=== PATIENT | male | born 1950 | race Caucasian/White ===

== ENCOUNTER 2019-05-27 16:33 | Outpatient (REF) | payer OTHER, SELFPAY ==
[2019-05-27 19:35] LABS: Calculated LDL 100 mg/dL (<100); Cholesterol 174 mg/dL (<200); HDL Cholesterol 35 mg/dL (40-60); Triglyceride 197 mg/dL (<150); Vitamin B12 570 pg/mL (193-986)
== END 2019-05-27 16:53 ==
LOC: NCHCN 16:33
PROVIDERS: PCP Family Medicine; Visit Provider Family Medicine
DX: R20.2 Paresthesia of skin (principal); Z00.00 Encounter for general adult medical examination without abnormal findings; Z13.220 Encounter for screening for lipoid disorders
CPT/HCPCS: 80061; 82607

== ENCOUNTER 2020-03-06 15:10 | Outpatient (REF) | payer MEDICARE, BC, SELFPAY ==
[2020-03-09 00:35] LABS: COVID-19 RT-PCR UVMMC Result Negative (Negative)
== END 2020-03-06 15:30 ==
LOC: NCHCN 15:10
PROVIDERS: PCP Family Medicine; Visit Provider Nurse Practitioner Family
DX: Z20.828 Contact with and (suspected) exposure to other viral communicable diseases (principal)
CPT/HCPCS: U0003

== ENCOUNTER 2021-08-30 06:31 | Day surgery (SDC) | payer MEDICARE, BC, SELFPAY ==
[2021-08-30] MEDS: Tropicam./Phenyleph. (1/2.5%) 5 ML BTL OD ×3 (06:51→07:07)
[2021-08-30 06:54] VITALS: BP 175/57; PULSE 43; RESP 16; TEMP 36.6; O2SAT 97
--- NOTE | 2021-08-30 07:09 | W.ANESPRE ---
General Info Date of Service Date Performed: 08/30/21 Height: 5 ft 6 in Weight: 74.6 kg Body Mass Index (BMI): 26.5 Surgical Procedure: Operation Date: 08/30/21 07:40 Proposed Procedure Side Surgeon p Cataract Extraction with IOL Implant Right Aron Reynolds MD Meds Allergies and Home Medications Allergies Allergy/AdvReac Type Severity Reaction Status Date / Time Poison Mariah Allergy Uncoded 08/30/21 06:47 Home Medication Medication Instructions Recorded aspirin 325 mg tablet 325 mg PO DAILY 08/26/21 flecainide 50 mg tablet 50 mg PO BID 08/26/21 levothyroxine 125 mcg tablet 125 mcg PO DAILY 08/26/21 metoprolol tartrate 25 mg tablet 25 mg PO BID 08/26/21 prednisone 5 mg tablet 5 mg PO DAILY 08/26/21 sildenafil 50 mg tablet 50 mg PO PRN PRN 08/26/21 Current Visit Medications: Current Medications Generic Name Dose Route Start Last Admin Trade Name Freq PRN Reason Stop Dose Admin Acetaminophen 1,000 mg 08/30/21 06:00 Acetaminophen 500 Mg Tab PO Q4H PRN PRN Miscellaneous Medication 0 ml 08/30/21 06:00 Prednisolone 1%, Moxifloxacin 0.5%, Nepafenac 0.1% 5ml Btl OD DIRECTED [facility] Miscellaneous Medication 0 ml 08/30/21 06:00 08/30/21 07:07 Tropicam./Phenyleph. (1/2.5%) 5 Ml Btl OD 1 drp DIRECTED [facility] Administration Tetracaine HCl 0 ml 08/30/21 06:00 Tetracaine 0.5% 4 Ml Btl OD DIRECTED [facility] Medical History Medical History (Updated 08/30/21 @ 06:46 by Kim Mckeon) Hypothyroidism Melanoma PAF (paroxysmal atrial fibrillation) Right arm fracture Tobacco Smoking/Tobacco Use Status: Former Tobacco Use Alcohol Alcohol Intake: current Alcohol intake frequency: 0-2 drinks per day Alcohol type: beer Substance Use Substance use type: does not use Vital Signs and Lab Results Vital Signs Most Recent Vital Signs in EMR: Most Recent Vital Signs Temp Pulse Resp BP Pulse Ox 36.6 C 43 L 16 175/57 H 97 08/30/21 06:54 08/30/21 06:54 08/30/21 06:54 08/30/21 06:54 08/30/21 06:54 Lab Results Blood Type / Crossmatch: No Data to Display Complete Blood Count: No Data to Display Complete Metabolic Panel: No Data to Display Liver Function Panel: No Data to Display Coagulation Panel: No Data to Display Cardiac Panel: No Data to Display Arterial Blood Gas: No Data to Display Venous Blood Gas: No Data to Display Pancreas Panel: No Data to Display Thyroid Panel: No Data to Display Infectious Disease: No Data to Display Blood Cultures: No Data to Display Toxicology Panel: No Data to Display Anesthesia Assessment and Plan Anesthesia History Personal History: No History of Anesthesia Complications Family History: No Family History of Anesthesia Complications Exercise Tolerance Exercise Tolerance: Metabolic Equivalents>4 Pertinent Negatives Pertinent Negatives: No Symptoms of GERD, No Major Cardiovascular Symptoms or Complaints (Atrial fibrillation ), No Major Pulmonary Symptoms or Complaints and No History of CVA/TIA Cardiac & Pulmonary Exam Cardiac Exam: Normal S1/S2 Heart Sounds Pulmonary Exam: Clear Bilateral Breath Sounds Implantable Cardiac Device Does patient have a Pacemaker or an ICD?: No Airway Exam Known Difficult Airway: No Mallampati Class: 3 Mouth Opening: Normal (> 3cm) Thyromental Distance: Greater than 3 cm Neck Range of Motion: Full ROM Neck Circumference: Normal Teeth Condition: Normal Dentition ASA Classification ASA Score: ASA 2 Emergency Case?: No NPO Status NPO Status: NPO Clears >2 hours, Solids >8 hours Anesthesia Plan Resuscitation Status: Full Code Anesthesia Technique: MAC Anesthesia Airway Planned: Natural Airway Monitors Used: Standard Monitors
[2021-08-30 07:11] VITALS: BMI 26.5
[2021-08-30] MEDS: Tetracaine 0.5% 4 ML BTL OD (07:27)
[2021-08-30] MEDS: Lidocaine 2% Jelly 6 ML SYR (07:27)
[2021-08-30] MEDS: Balanced Salt Soln.-PLUS 500 ML BAG (07:37)
[2021-08-30] MEDS: Povidone-Iodine Ophth 30 ML BTL (07:38)
[2021-08-30] MEDS: Duovisc Viscoelastic System EACH 1 EACH (07:38)
[2021-08-30 07:52] VITALS: BP 167/65; PULSE 45; RESP 16; TEMP 36.6; O2SAT 98
--- NOTE | 2021-08-30 07:54 | PDOC.DSDIS_ITS ---
Discharge Plan Disposition Patient Disposition: HOME Condition: Good Discharge Details Attending Provider: Aron Reynolds Primary Care Provider: Michael Vogel [facility] and New Rx's Prescriptions: No Action sildenafil 50 mg Tablet 50 mg PO PRN PRN aspirin 325 mg Tablet 325 mg PO DAILY prednisone 5 mg Tablet 5 mg PO DAILY levothyroxine 125 mcg Tablet 125 mcg PO DAILY flecainide 50 mg Tablet 50 mg PO BID metoprolol tartrate 25 mg Tablet 25 mg PO BID Discharge Instructions Stand Alone Forms: Post-op Topical Cataract, Kristine Samaniego ([facility]U) Discharge Orders Discharge Orders: Discharge Order (Routine); Ordered 08/30/21 Ordered By: Aron Reynolds DS: Diagnosis Discharge Diagnosis (1) Nuclear sclerotic cataract of right eye: Status: Resolved (2) Posterior subcapsular age-related cataract, right eye: Status: Resolved
--- NOTE | 2021-08-30 07:54 | W.ANESPOSTOP ---
Postoperative Evaluation Date, Time and Location Date Performed: 08/30/21 Time Performed: 07:55 Patient Location: Day Surgery Unit Vital Signs Most Recent Imported Vital Signs: Most Recent Vital Signs Temp Pulse Resp BP Pulse Ox 36.6 C 43 L 16 175/57 H 97 08/30/21 06:54 08/30/21 06:54 08/30/21 06:54 08/30/21 06:54 08/30/21 06:54 Most Recent Manually Entered Vital Signs: Adult Blood Pressure: 167/85 Heart Rate: 45 Respirations: 16 Oxygen Saturation (%): 98 Temperature (C): 36.6 C Pain Score (0-10 Scale): 0 Pain Score Most Recent Pain Score: Most Recent Pain Score Pain Level 0 08/30/21 06:54 Assessment Mental Status: Awake (Alert & Oriented to Patient Baseline) Airway and Respiratory Function: Patent airway with normal (patient baseline) respiratory exam Cardiovascular Function: Hemodynamically Stable Hydration Status: Adequately Hydrated Nausea & Vomiting: No Nausea or Vomiting Pain: Pt. Denies Any Pain Peripheral Nerve Block: Patient did not receive a nerve block
--- NOTE | 2021-08-30 07:55 | W.PM.OP ---
Date of service: 08/30/21 Time of Service: 07:56 Operative Note Operative Note DATE OF PROCEDURE: 08/30/21 PRE-OP DIAGNOSIS: Nuclear/posterior subcapsular cataract, right eye POST-OP DIAGNOSIS: same PROCEDURE: Cataract extraction using phacoemulsification with intraocular lens implant, right eye SURGEON: Aron Reynolds ANESTHESIA TYPE: Local By Surgeon and MAC Refer to Anesthesia Record ESTIMATED BLOOD LOSS: 0 PATHOLOGY: none sent COMPLICATIONS: None Patient was transported to: same day Patient's condition: stable Implants: Armen & Armen/NALLELY Tecnis [id number] Indications: Progressive visual loss due to cataract, right eye Procedure Description: CATARACT SURGERY OPERATIVE REPORT PREOPERATIVE DIAGNOSIS: 1. Nuclear/posterior subcapsular cataract, right eye POSTOPERATIVE DIAGNOSIS: Same OPERATION: 1. Cataract extraction using phacoemulsification with posterior chamber intraocular lens implant, right eye. IOL: IOL [employer] Worker/Model: Armen & Armen / NALLELY Tecnis [id number] IOL Power: + 15.0 diopters IOL Serial Number: [id number] Optic Diameter: 6.0mm Haptic/Overall Diameter: 13.0mm PHACO INFO: David CABIRI - [employer] Vision System with OZil and Active Fluidics Cumulative Dispersed Energy (CDE): 11.77 seconds SURGEON: Aron Reynolds MD, MARCELLUS ANESTHESIA: Monitored Anesthesia Care (MAC), with local sub-tenon's anesthetic infiltration COMPLICATIONS: None SPECIMENS: None INDICATIONS FOR PROCEDURE: The patient is a 71-year-old gentleman with history of diminished visual acuity in his right eye secondary to the development of nuclear and posterior subcapsular cataract. The option of cataract surgery was offered to the patient and he felt he was symptomatic enough that he wished to proceed. PROCEDURE: The correct surgical eye was identified and marked as the right eye and the pupil was dilated in the preoperative area using mydriatics and cycloplegics. The dilated pupil size was 7.0 mm. He elected to proceed without oral sedation. The patient was brought to the operating room where cardiopulmonary monitoring was instituted and surgical time-out was performed, confirming the correct operative eye and IOL power. Topical anesthesia was administered and ophthalmic povidone-iodine 5% was instilled into the conjunctival fornices. Lidocaine gel was applied to the cornea and the sohail-ocular area was prepped with Betadine 10% solution and draped in the usual sterile fashion for intraocular surgery, including an aperture drape. A Tegaderm transparent film dressing was cut in half and used to cover the lashes and lid margins. Care was taken to sequester the lashes and lid margins under the Tegaderm dressing. A lid speculum was placed between the lids of the operative eye and the David [employer] Revalia operating microscope was maneuvered into position. Elana scissors were then used to make a conjunctival buttonhole approximately 6mm posterior to the limbus in the inferonasal quadrant. Blunt dissection was carried out to expose bare sclera, and a blunt-tipped sub-tenon?s anesthesia cannula was introduced and passed posteriorly along the globe where non-preserved plain lidocaine was injected into posterior sub-Tenon?s space. A sideport knife was used to make a paracentesis port inferotemporally. Intraocular phenylephrine/lidocaine was injected into the anterior chamber. The anterior chamber was filled with viscoelastic. A 2.4mm keratome knife was used to construct a 2-plane near-clear corneal tunnel extending 2.0mm into clear cornea superiortemporally. A flap was raised on the anterior capsule and capsulorhexis forceps were used to complete a continuous curvilinear capsulorhexis of 5.0 mm. Balanced salt solution was then used to perform cortical cleaving hydrodissection and nuclear hydrodelineation until the lens could be freely rotated within the capsular bag. The lens nucleus was then disassembled and removed within the capsular bag and iris plane using phacoemulsification. Residual cortical material was removed using the I/A handpiece. The posterior capsule was carefully polished to remove as much residual lens epithelial cells as safely possible. The capsular bag was then inflated and the anterior chamber deepened with viscoelastic. The lens implant described above was inserted into the capsular bag using the NALLELY [place] Injector. A Kuglen hook was used to dial the IOL into position. Residual viscoelastic was then removed first from posterior to the IOL, then from the anterior chamber using the I/A handpiece. The lens implant was noted to center nicely within the capsular bag. The incisions were stromally hydrated, and the anterior chamber was reformed using BSS. Then 0.5cc of moxifloxacin 1.0mg/ml were injected into the capsular bag and anterior chamber. The incisions were checked with a Weck spear and found to be secure. Several drops of ophthalmic povidone-iodine 5% were then applied to the eye followed by two drops of Imprimis combination prednisolone/moxifloxacin/nepafenac solution. The drapes were removed and a clear plastic protective eye shield was placed over the eye. The patient was then returned to Same Day Surgery in stable condition.
[2021-08-30 07:56] VITALS: BP 167/85; PULSE 45; RESP 16; TEMPC 36.6; O2SAT 98
== END 2021-08-30 08:08 | disposition home or self-care (01) ==
PROVIDERS: PCP Family Medicine; Visit Provider Ophthalmology
PROC: (CPT 66984; principal; 2021-08-30 07:30)
DX: H25.041 Posterior subcapsular polar age-related cataract, right eye (principal); I48.0 Paroxysmal atrial fibrillation; E03.9 Hypothyroidism, unspecified; Z87.891 Personal history of nicotine dependence
CPT/HCPCS: 66984; V2632

== ENCOUNTER 2021-09-13 12:07 | Day surgery (SDC) | payer MEDICARE, BC, SELFPAY ==
[2021-09-13 10:54] LABS: Source Nasal/Nares
[2021-09-13 11:48] LABS: COVID-19 PCR Negative (Negative)
[2021-09-13 12:40] VITALS: BP 125/54; PULSE 45; RESP 13; TEMP 36.5; O2SAT 95
--- NOTE | 2021-09-13 13:48 | NUR.NOTE ---
Nursing Note: 1240 Procedure canceled per anesthesia. Patient consumed chocolate and nuts prior to procedure.
== END 2021-09-13 12:08 | disposition home or self-care (01) ==
LOC: SUR 12:08
PROVIDERS: PCP Family Medicine; Visit Provider Ophthalmology
DX: H25.9 Unspecified age-related cataract (principal); Z53.09 Procedure and treatment not carried out because of other contraindication; Z20.822 Contact with and (suspected) exposure to COVID-19
CPT/HCPCS: 87635

== ENCOUNTER 2021-09-24 08:53 | Day surgery (SDC) | payer MEDICARE, BC, SELFPAY ==
[2021-09-24 09:00] VITALS: BP 141/64; PULSE 46; RESP 16; TEMP 36.5; O2SAT 95
[2021-09-24] MEDS: Tropicam./Phenyleph. (1/2.5%) 5 ML BTL OS ×3 (09:14→09:19)
--- NOTE | 2021-09-24 10:11 | W.ANESPRE ---
General Info Date of Service Date Performed: 09/24/21 Height: 5 ft 6 in Weight: 74.7 kg Body Mass Index (BMI): 26.6 Surgical Procedure: Operation Date: 09/24/21 11:40 Proposed Procedure Side Surgeon p Cataract Extraction with IOL Implant Left Aron Reynolds MD Meds Allergies and Home Medications Allergies Allergy/AdvReac Type Severity Reaction Status Date / Time Poison Mariah Allergy Uncoded 09/24/21 08:55 Home Medication Medication Instructions Recorded aspirin 325 mg tablet 325 mg PO DAILY 08/26/21 flecainide 50 mg tablet 50 mg PO BID 08/26/21 levothyroxine 125 mcg tablet 125 mcg PO DAILY 08/26/21 metoprolol tartrate 25 mg tablet 25 mg PO BID 08/26/21 prednisone 5 mg tablet 5 mg PO DAILY 08/26/21 sildenafil 50 mg tablet 50 mg PO PRN PRN 08/26/21 Current Visit Medications: Current Medications Generic Name Dose Route Start Last Admin Trade Name Freq PRN Reason Stop Dose Admin Acetaminophen 1,000 mg 09/24/21 06:00 Acetaminophen 500 Mg Tab PO Q4H PRN PRN Miscellaneous Medication 0 ml 09/24/21 06:00 Prednisolone 1%, Moxifloxacin 0.5%, Nepafenac 0.1% 5ml Btl OS DIRECTED [facility] Miscellaneous Medication 0 ml 09/24/21 06:00 09/24/21 09:19 Tropicam./Phenyleph. (1/2.5%) 5 Ml Btl OS 1 drp DIRECTED [facility] Administration Tetracaine HCl 0 ml 09/24/21 06:00 Tetracaine 0.5% 4 Ml Btl OS DIRECTED [facility] PFSH Active Problems Active Problems: Problem Status Onset Code Nuclear sclerotic cataract of right eye H25.11 Posterior subcapsular age-related cataract, right eye H25.041 Medical History Medical History Hypothyroidism Melanoma PAF (paroxysmal atrial fibrillation) Right arm fracture Surgical History Surgical History (Updated 09/24/21 @ 09:07 by Sadia Quiroga) S/P ORIF (open reduction internal fixation) fracture Tobacco Smoking/Tobacco Use Status: Former Tobacco Use Alcohol Alcohol Intake: current Alcohol intake frequency: 0-2 drinks per day Alcohol type: beer Substance Use Substance use type: does not use Vital Signs and Lab Results Vital Signs Most Recent Vital Signs in EMR: Most Recent Vital Signs Temp Pulse Resp BP Pulse Ox 36.5 C 46 L 16 141/64 H 95 09/24/21 09:00 09/24/21 09:00 09/24/21 09:00 09/24/21 09:00 09/24/21 09:00 Lab Results Blood Type / Crossmatch: No Data to Display Complete Blood Count: No Data to Display Complete Metabolic Panel: No Data to Display Liver Function Panel: No Data to Display Coagulation Panel: No Data to Display Cardiac Panel: No Data to Display Arterial Blood Gas: No Data to Display Venous Blood Gas: No Data to Display Pancreas Panel: No Data to Display Thyroid Panel: No Data to Display Infectious Disease: Coronavirus (COVID-19)(PCR) Negative (Negative) 09/13/21 10:51 Coronavirus 2019 Source Nasal/Nares 09/13/21 10:51 Blood Cultures: No Data to Display Toxicology Panel: No Data to Display Anesthesia Assessment and Plan Anesthesia History Personal History: No History of Anesthesia Complications Family History: No Family History of Anesthesia Complications Exercise Tolerance Exercise Tolerance: Metabolic Equivalents>4 Pertinent Negatives Pertinent Negatives: No Major Pulmonary Symptoms or Complaints Cardiac & Pulmonary Exam Cardiac Exam: Normal S1/S2 Heart Sounds Pulmonary Exam: Clear Bilateral Breath Sounds Implantable Cardiac Device Does patient have a Pacemaker or an ICD?: No Airway Exam Known Difficult Airway: No Mallampati Class: 3 Mouth Opening: Normal (> 3cm) Thyromental Distance: Greater than 3 cm Neck Range of Motion: Full ROM Neck Circumference: Normal Teeth Condition: Normal Dentition ASA Classification ASA Score: ASA 3 Emergency Case?: No NPO Status NPO Status: NPO Clears >2 hours, Solids >8 hours Anesthesia Plan Resuscitation Status: Full Code Anesthesia Technique: MAC Anesthesia Airway Planned: Natural Airway Monitors Used: Standard Monitors
[2021-09-24 10:35] VITALS: BMI 26.6
[2021-09-24] MEDS: Tetracaine 0.5% 4 ML BTL OS (10:44)
[2021-09-24] MEDS: Lidocaine 2% Jelly 6 ML SYR (10:44)
[2021-09-24] MEDS: Balanced Salt Soln.-PLUS 500 ML BAG (10:52)
[2021-09-24] MEDS: Duovisc Viscoelastic System EACH 1 EACH (10:53)
[2021-09-24] MEDS: Povidone-Iodine Ophth 30 ML BTL (10:55)
[2021-09-24 11:15] VITALS: BP 156/52; PULSE 45; RESP 16; TEMP 36.1; O2SAT 99
--- NOTE | 2021-09-24 11:18 | ROE_ITS ---
Date of service: 09/24/21 Time of Service: 11:19 Operative Note Operative Note DATE OF PROCEDURE: 09/24/21 PRE-OP DIAGNOSIS: Nuclear cataract, left eye POST-OP DIAGNOSIS: same PROCEDURE: Cataract extraction using phacoemulsification with intraocular lens implant, left eye SURGEON: Aron Reynolds ANESTHESIA TYPE: Local By Surgeon and MAC Refer to Anesthesia Record PATHOLOGY: none sent COMPLICATIONS: None Patient was transported to: same day Patient's condition: stable Implants: Armen and Armen / [employer] Tecnis [id number] Indications: Progressive decreased vision due to cataract, left eye Procedure Description: CATARACT SURGERY OPERATIVE REPORT PREOPERATIVE DIAGNOSIS: 1. Nuclear cataract, left eye POSTOPERATIVE DIAGNOSIS: Same OPERATION: 1. Cataract extraction using phacoemulsification with posterior chamber intraocular lens implant, left eye. IOL: IOL Drivability Technician/Model: Armen & Armen / NALLELY Tecnis [id number] IOL Power: + 15.5 diopters IOL Serial Number: [id number] Optic Diameter: 6.0 mm Haptic/Overall Diameter: 13.0 mm PHACO INFO: David [employer]ion Vision System with OZil and Active Fluidics Cumulative Dispersed Energy (CDE): 6.01 seconds SURGEON: Aron Reynolds MD, MARCELLUS ANESTHESIA: Monitored [facility] (MAC), with local sub-tenon's anesthetic infiltration COMPLICATIONS: None SPECIMENS: None INDICATIONS FOR PROCEDURE: The patient is a 71-year-old gentleman with history of diminished visual acuity in both eyes secondary to the development of bilateral cataracts. He has already undergone cataract surgery in the right eye and is doing well postoperatively. He now presents for cataract surgery in the left eye. PROCEDURE: The correct surgical eye was identified and marked as the left eye and the pupil was dilated in the preoperative area using mydriatics and cycloplegics. The dilated pupil size was 7.0 mm. The patient elected to proceed without oral sedation. The patient was brought to the operating room where cardiopulmonary monitoring was instituted and surgical time-out was performed, confirming the correct operative eye and IOL power. Topical anesthesia was administered and ophthalmic povidone-iodine 5% was instilled into the conjunctival fornices. Lidocaine gel was applied to the cornea and the sohail-ocular area was prepped with Betadine 10% solution and draped in the usual sterile fashion for intraocular surgery, including an aperture drape. A Tegaderm transparent film dressing was cut in half and used to cover the lashes and lid margins. Care was taken to sequester the lashes and lid margins under the Tegaderm dressing. A lid speculum was placed between the lids of the operative eye and the David [employer] operating microscope was maneuvered into position. Elana scissors were then used to make a conjunctival buttonhole approximately 6mm posterior to the limbus in the inferonasal quadrant. Blunt dissection was carried out to expose bare sclera, and a blunt-tipped sub-tenon?s anesthesia cannula was introduced and passed posteriorly along the globe where non- preserved plain lidocaine was injected into posterior sub-Tenon?s space. A sideport knife was used to make a paracentesis port superiorly/super iortemporally. Intraocular phenylephrine/lidocaine was injected int the anterior chamber.. The anterior chamber was filled with viscoelastic. A keratome knife was used to construct a 2-plane near-clear corneal tunnel extending 2.0mm into clear cornea temporally. A flap was raised on the anterior capsule and capsulorhexis forceps were used to complete a continuous curvilinear capsulorhexis of 5.0 mm. Balanced salt solution was then used to perform cortical cleaving hydrodissection and nuclear hydrodelineation until the lens could be freely rotated within the capsular bag. The lens nucleus was then disassembled and removed within the capsular bag and iris plane using phacoemulsification. Residual cortical material was removed using the 45-degree angled silicone I/A tip with 0.3mm port. The posterior capsule was carefully polished to remove as much residual lens epithelial cells as safely possible. The capsular bag was then inflated and the anterior chamber deepened with viscoelastic. The lens implant described above was inserted into the capsular bag using the NALLELY [place] Injector. A Kuglen hook was used to dial the IOL into position. Residual viscoelastic was then removed first from posterior to the IOL, then from the anterior chamber using the I/A handpiece. The lens implant was noted to center nicely within the capsular bag. The incisions were stromally hydrated, and the anterior chamber was reformed using BSS. Then 0.5cc of moxifloxacin 1.0mg/ml were injected into the capsular bag and anterior chamber. The incisions were checked with a Weck spear and found to be secure. Several drops of ophthalmic povidone-iodine 5% were then applied to the eye followed by two drops of Imprimis combination prednisolone/moxifloxacin/nepafenac solution. The drapes were removed and a clear plastic protective eye shield was placed over the eye. The patient was then returned to Same Day Surgery in stable condition.
--- NOTE | 2021-09-24 11:18 | W.PM.DSUDISC ---
Discharge Plan Disposition Patient Disposition: HOME Condition: Good Discharge Details Attending Provider: Aron Reynolds Primary Care Provider: Michael Vogel [facility] and New Rx's Prescriptions: No Action sildenafil 50 mg Tablet 50 mg PO PRN PRN aspirin 325 mg Tablet 325 mg PO DAILY prednisone 5 mg Tablet 5 mg PO DAILY levothyroxine 125 mcg Tablet 125 mcg PO DAILY flecainide 50 mg Tablet 50 mg PO BID metoprolol tartrate 25 mg Tablet 25 mg PO BID Discharge Instructions Stand Alone Forms: Post-op Topical Cataract, Kristine Samaniego ([facility]U) Discharge Orders Discharge Orders: Discharge Order (Routine); Ordered 09/24/21 Ordered By: Aron Reynolds DS: Diagnosis Discharge Diagnosis (1) Nuclear sclerotic cataract of left eye: Status: Resolved
--- NOTE | 2021-09-24 16:09 | W.ANESPOSTOP ---
Postoperative Evaluation Date, Time and Location Date Performed: 09/24/21 Time Performed: 11:15 Patient Location: Day Surgery Unit Vital Signs Most Recent Imported Vital Signs: Most Recent Vital Signs Temp Pulse Resp BP Pulse Ox 36.1 C L 45 L 16 156/52 H 99 09/24/21 11:15 09/24/21 11:15 09/24/21 11:15 09/24/21 11:15 09/24/21 11:15 Pain Score Most Recent Pain Score: Most Recent Pain Score Pain Level 0 09/24/21 11:15 Assessment Mental Status: Awake (Alert & Oriented to Patient Baseline) Airway and Respiratory Function: Patent airway with normal (patient baseline) respiratory exam Cardiovascular Function: Hemodynamically Stable Hydration Status: Adequately Hydrated Nausea & Vomiting: No Nausea or Vomiting Pain: Pt. Denies Any Pain Peripheral Nerve Block: Patient did not receive a nerve block
== END 2021-09-24 11:33 | disposition home or self-care (01) ==
LOC: SUR 08:53
PROVIDERS: PCP Family Medicine; Visit Provider Ophthalmology
PROC: (CPT 66984; principal; 2021-09-24 11:30)
DX: H25.12 Age-related nuclear cataract, left eye (principal); I48.0 Paroxysmal atrial fibrillation; E03.9 Hypothyroidism, unspecified
CPT/HCPCS: 66984; V2632

== ENCOUNTER 2022-01-14 15:27 | Outpatient (REF) | payer MEDICARE, BC, SELFPAY ==
[2022-01-14 17:03] LABS: Anion Gap 6.2 mmol/L (3-11); BUN 20 mg/dL (7-18); CO2 27.8 mmol/L (21.0-32.0); CREATININE 1.1 mg/dL (0.70-1.30); Calcium 8.9 mg/dL (8.5-10.1); Chloride 106 mmol/L (98-107); Estimated GFR 72.67 (mL/min/1.73m2); Glucose 89 mg/dL (74-106); Magnesium 1.9 mg/dL (1.8-2.4); Potassium 4.5 mmol/L (3.5-5.1); Sodium 140 mmol/L (136-145); TSH (W/Ref FT4) 0.95 uIU/mL (0.36-3.74)
== END 2022-01-14 15:28 | disposition home or self-care (01) ==
LOC: NCHCN 15:27
PROVIDERS: PCP Family Medicine; Visit Provider Family Medicine
DX: I10 Essential (primary) hypertension (principal); E03.2 Hypothyroidism due to medicaments and other exogenous substances
CPT/HCPCS: 80048; 83735; 84443

== ENCOUNTER 2023-09-08 16:10 | Outpatient (REF) | payer MEDICARE, BC, SELFPAY ==
[2023-09-08 20:06] LABS: Anion Gap 8.2 mmol/L (3-11); BUN 26 mg/dL (7-18); CO2 30.8 mmol/L (21.0-32.0); CREATININE 1.4 mg/dL (0.70-1.30); Calcium 9.1 mg/dL (8.5-10.1); Calculated LDL 107 mg/dL (<100); Chloride 103 mmol/L (98-107); Cholesterol 181 mg/dL (<200); Estimated GFR 53.74 (mL/min/1.73m2); Glucose 100 mg/dL (74-106); HDL Cholesterol 42 mg/dL (40-60); Magnesium 1.9 mg/dL (1.8-2.4); Sodium 142 mmol/L (136-145); TSH (W/Ref FT4) 2.08 uIU/mL (0.36-3.74); Triglyceride 160 mg/dL (<150)
== END 2023-09-08 16:11 | disposition home or self-care (01) ==
LOC: NCHCN 16:10
PROVIDERS: PCP Family Medicine; Visit Provider Student in an Organized Health Care Education/Training Program
DX: I10 Essential (primary) hypertension (principal); E03.9 Hypothyroidism, unspecified; R79.89 Other specified abnormal findings of blood chemistry
CPT/HCPCS: 80048; 80061; 83735; 84443

== ENCOUNTER 2024-08-31 16:01 | Emergency (ER) | payer MEDICARE, BC, SELFPAY ==
[2024-08-31] VITALS (22 sets, daily range): BP systolic 168–199; BP diastolic 50–94; PULSE 47–66; RESP 9–26; TEMP 36.8; O2SAT 96–100
--- NOTE | 2024-08-31 16:00 | DI.CT_ITS ---
Exam(s) CT HEAD CERVICAL SPINE WO EXAM: CT HEAD CERVICAL SPINE WO CLINICAL HISTORY: fall off roof, +LOC. TECHNIQUE: Imaging Protocol: Axial computed tomography images with coronal and sagittal reformatted images were created and reviewed COMPARISON: No exams were available for comparison FINDINGS: BRAIN: There are no skull fractures nor fluid in the visualized paranasal sinuses. There is an area of acute intraparenchymal hemorrhage in the upper medial right frontal lobe which measures 1.2 x 0.6 x 0.9 cm and exhibits some mild surrounding edema But no shift of midline structures. There is also some extra-axial blood along the right tentorium cerebella lie adjacent right temporal lobe. There is no blood within the nondilated ventricular system nor within the basal cisterns. CERVICAL SPINE: There is no evidence of fracture nor listhesis. No significant prevertebral soft tissue swelling. There is chronic disc space narrowing at C3-4 level and Luschka joint osteophytes bilaterally at this level. Other disc spaces are relatively well preserved. There is some mild degenerative changes in the facet joints. No facet joint malalignment. No significant osseous lesions evident. IMPRESSION: There is an area of acute intra-axial hemorrhage in the high paramedian right frontal lobe measuring approximately 12 x 9 x 6 mmexhibiting mild surrounding white matter edema but no shift. There is also extra-axial blood on the superior aspect of the right tentorium cerebella I as well as mild hemorrhagic contusion in the overlying posterior right temporal lobe. No evidence of cervical spine fracture, malalignment, nor acute compromise of the cervical spinal canal. Report called by myself to ER physician 08/31/2024 at 5:01 p.m. RADIATION DOSE DELIVERED: 1,387.63mGy.cm Total DLP DATA REPOSITORY: All CT scans at this facility are submitted to the National Radiology Data Registry (NRDR) Dose Index Registry (DIR) with the [employer] (ACR). RADIATION OPTIMIZATION: All CT scans at this facility use at least one of these dose optimization techniques: automated exposure control; mA and/or kV adjustment per patient size (includes targeted exams where dose is matched to clinical indication); or iterative reconstruction.
--- NOTE | 2024-08-31 16:00 | DI.CT_ITS ---
Exam(s) CT THORACIC LUMBAR SPINE WO EXAM: CT THORACIC LUMBAR SPINE WO CLINICAL HISTORY: Fall off roof, R. flank abrasion. TECHNIQUE: Imaging Protocol: Axial computed tomography images with coronal and sagittal reformatted images were created and reviewed. CONTRAST MATERIAL: Intravenous: None COMPARISON: No exams were available for comparison FINDINGS: THORACIC SPINAL COLUMN: There are no thoracic vertebral fractures nor listhesis nor facet joint malalignment in thoracic spine. There are nondisplaced fractures of the right 11th and 12th ribs. LUMBOSACRAL SPINAL COLUMN: There are no compression fractures nor listhesis nor facet malalignment. No pars defects. However, there are acute displaced fractures of the right 1st through 5th transverse process is, all displaced. In addition to all of the right transverse process is being fractured there is also some asymmetric enlargement-hematoma in the ipsilateral right psoas muscle. Calculi noted in both kidneys. There is also some scarring in the upper lobe of the right kidney and some Margy renal streaking around the upper lobe of the right kidney which may be post operative or related to the trauma. There is no large Margy renal hematoma. IMPRESSION: There are displaced fractures of all 5 of the right transverse process is of the lumbar spine. There is adjacent right psoas hematoma. There are no compression fractures of the thoracic and lumbar vertebrae. There are nondisplaced fractures of the posterior lateral aspects of the right 11th and 12th ribs. Report called by myself to ER physician 08/31/2024 5:30 p.m. RADIATION DOSE DELIVERED: 2,350.49mGy.cm Total DLP DATA REPOSITORY: All CT scans at this facility are submitted to the National Radiology Data Registry (NRDR) Dose Index Registry (DIR) with the [employer] (ACR). RADIATION OPTIMIZATION: All CT scans at this facility use at least one of these dose optimization techniques: automated exposure control; mA and/or kV adjustment per patient size (includes targeted exams where dose is matched to clinical indication); or iterative reconstruction.
--- NOTE | 2024-08-31 16:00 | RT.EKG_ITS ---
APPROVED REPORT Exam: Resting ECG Reason for Exam: Fall Patient Location: E HR:49 bpm ECG Measurements Heart Rate 49 AXIS ND 220 P 66 QRSd 99 QRS 41 QT 505 T 41 QTc 459 Conclusion Sinus bradycardia, rate 49 No interval abnormalities No STEMI No priors available for comparison
--- NOTE | 2024-08-31 16:13 | W.ED.GENAD ---
Discharge Plan Disposition Patient Disposition: Transfer-Acute Inpatient Care Specific Acute Inpt Facility: [facility] Condition: Stable Discharge Details Clinical Impression: Intracranial hemorrhage following injury, Closed fracture of transverse process of lumbar vertebra, Right rib fracture, Fall from ladder Primary Care Provider: Michael Vogel ED Provider: Carolynn Hickey Home Meds and New Rx's Prescriptions: No Action sildenafil 50 mg Tablet 50 mg PO PRN PRN aspirin 325 mg Tablet 325 mg PO DAILY levothyroxine 125 mcg Tablet 125 mcg PO DAILY flecainide 50 mg Tablet 50 mg PO BID metoprolol tartrate 25 mg Tablet 25 mg PO BID HPI General Mode of arrival: EMS. Date/Time Provider Initiated Documentation: 08/31/24 16:03. Limitations to Documentation: no limitations. Information obtained by: patient, EMS and old records reviewed. HPI Narrative: This is a 74-year-old male patient with a past medical history significant for hypertension, paroxysmal atrial fibrillation not on anticoagulation, and history of melanoma as well as partial nephrectomy, who is presenting for evaluation after a fall. The patient was approximately 6 to 8 feet up on a ladder working on his roof. He states that he is not sure what made him fall, states that the next that he remembers is being on the ground. The surface that he landed on was gravel, he is reported to have lost consciousness per family on scene. On EMS arrival the patient had had a return to his normal mentation, was awake, alert, and oriented. He is complaining of right sided back pain, and has an abrasion to his right elbow, but otherwise is without traumatic injury or pain complaint. He reports that he was in his normal state of health prior to this event. Related Data Home Medications ?Medication ?Instructions ?Recorded ?Confirmed aspirin 325 mg tablet 325 mg PO DAILY 08/26/21 08/31/24 flecainide 50 mg tablet 50 mg PO BID 08/26/21 08/31/24 levothyroxine 125 mcg tablet 125 mcg PO DAILY 08/26/21 08/31/24 metoprolol tartrate 25 mg tablet 25 mg PO BID 08/26/21 08/31/24 sildenafil 50 mg tablet 50 mg PO PRN PRN 08/26/21 08/31/24 Allergies Allergy/AdvReac Type Severity Reaction Status Date / Time Poison Mariah Allergy Uncoded 09/24/21 08:55 General Stated Complaint: Trauma IZA: 3 Exam Narrative Exam Narrative: Gen: awake and alert, in no apparent distress. Appears well nourished. HEENT: Scalp atraumatic, PERRL at 3 mm, EOMs full and without nystagmus. External ears and nose normal, mucous membranes moist. Facial bones stable and without deformity or tenderness, no dental malocclusion Neck: Supple, full range of motion, no observable masses Lungs: No increased work of breathing, lung sounds clear and equal bilaterally without wheezes, rhonchi, or rales. CV: Heart with bradycardic rate but regular rhythm, no murmurs auscultated. Strong and symmetrical radial pulses. Abdomen: Soft, nondistended, non-tender to palpation. No rigidity, rebound tenderness, or guarding. MSK: The patient has no C/T/L-spine tenderness or step-offs, chest wall, clavicles, and shoulders are stable and without tenderness, deformity, or crepitus to palpation. Pelvis stable to AP compression, 4 extremities without deformity, limitation in range of motion, or external signs of trauma other than the abrasion appreciated to the right elbow Skin: Abrasion right elbow, hemostatic, otherwise no rashes or lesions to visualized skin. Normal color, warm, and dry. Neuro: Cranial nerves II-XII intact and symmetrical bilaterally. 5/5 strength in all muscle groups x4 extremities. No sensory deficits. Psych: Appropriate for situation. Course Vital Signs Vital signs: Vital Signs Temperature 36.8 C 08/31/24 16:03 Pulse 55 L 08/31/24 16:03 Respiratory Rate 16 08/31/24 16:03 Blood Pressure 199/59 H 08/31/24 16:03 Pulse Oximetry 98 08/31/24 16:03 Temperature 36.8 C 08/31/24 16:03 Pulse 55 L 08/31/24 16:03 Respiratory Rate 16 08/31/24 16:03 Blood Pressure 199/59 H 08/31/24 16:03 Pulse Oximetry 98 08/31/24 16:03 Oxygen Delivery Method Room Air 08/31/24 16:03 Oxygen Flow Rate 0 08/31/24 16:03 Pain Level 1 08/31/24 16:03 Medical Decision Making This is a 74-year-old male patient presenting for evaluation after a fall. Differential includes but is not limited to head injury including intracranial hemorrhage, skull fracture, concussion, fracture, intact neuro examination reassuring spinal cord injury. The patient has evidence of lesions, but the remainder of his secondary trauma examination is reassuring against intrathoracic, intra-abdominal, or intrapelvic injuries. Our primary survey was completed and without actionable findings. Fast negative, vital signs reassuring. Labs were obtained to include CBC, CMP, magnesium, troponin, INR. An EKG was obtained which shows a sinus bradycardia without evidence of ischemia, interval abnormality, or ectopy unfortunately, no priors are available for comparison. Will obtain a CT of the head and C/T/L-spine. At this time the patient is not desiring of any medications for management of pain. - I independently interpreted the laboratory studies, which show no significant leukocytosis, anemia, or thrombocytopenia. The chemistry panel is without evidence of electrolyte abnormality, new or worsening kidney dysfunction, or liver injury. Troponin is negative, INR is not elevated. I reviewed the patient's imaging and discussed the results with the radiologist. The patient has an intraparenchymal hemorrhage in the right frontal lobe as well as a subarachnoid hemorrhage, no associated skull or cervical spine fracture. He does have nondisplaced fractures of right ribs 11 and 12, and fractures of the transverse process on the right side of L1 and L5 with associated right psoas hematoma. Urinalysis obtained which shows trace blood, no infectious findings. I discussed the case with Dr. Minor of [facility] [place] who is accepted the patient for ED to ED transfer as a trauma consult. The patient remains hemodynamically appropriate, he did receive Tylenol and Dilaudid for ongoing pain. 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 Carolynn Hickey MD Critical Care Time Critical Care Time Critical Care Time: Yes Total Critical Care Time: 45 Attestation: Upon my evaluation, this patient had a high probability of imminent or life-threatening deterioration due to multisystem trauma, intracranial hemorrhage, which required my direct attention, intervention, and personal management. I have personally provided 45 minutes of critical care time exclusive of time spent on separately billable procedures. Time includes review of laboratory data, radiology results, discussion with consultants, and monitoring for potential decompensation. Interventions were performed as documented above. Carolynn Hickey MD [facility] All Active Problems (Updated 08/31/24 @ 17:34 by Carolynn Hickey MD) Fall from ladder (Acute) Right rib fracture (Acute) Closed fracture of transverse process of lumbar vertebra (Acute) Intracranial hemorrhage following injury (Acute) Medical History (Updated 08/31/24 @ 17:34 by Carolynn Hickey MD) Right arm fracture Hypothyroidism PAF (paroxysmal atrial fibrillation) Melanoma Surgical History (Updated 09/24/21 @ 11:18 by Aron Reynolds MD) S/P ORIF (open reduction internal fixation) fracture Social History Smoking/Tobacco Use Status: Former Tobacco Use Smoking risk assessment performed?: Yes Alcohol Intake: current Alcohol Intake frequency: 0-2 drinks per day Alcohol type: beer Substance use type: does not use Do you feel safe at home: Yes Do you feel safe in your relationship?: Yes POCUS Exam (ED) FAST Exam DATE OF EXAM: 08/31/24 TIME OF EXAM: 16:13 PROVIDER THAT PERFORMED THE STUDY: Carolynn Hickey IS THIS A REPEAT EXAM DURING THIS ENCOUNTER: no REASON FOR EXAM: Fall VISUALIZED STRUCTURES: Hepatorenal space, Pelvis, Pericardium and Perisplenic space PERTINENT FINDINGS/IMPRESSION: no apparent abnormalities Limited Transthoracic Exam: Exam complete Limited Abdominal Exam: Exam complete Limited Retroperitoneal Exam: Exam complete
[2024-08-31 16:21] LABS: Abs Immature Grans 0.05 10^3/uL (0.0-0.06); Absolute Basophil Count 0.06 10^3/uL (0.0-0.2); Absolute Eosinophil Count 0.15 10^3/uL (0.0-0.7); Absolute Lymphocyte Count 1.59 10^3/uL (1.2-3.4); Absolute Monocyte Count 0.73 10^3/uL (0.1-0.8); Absolute Neutrophil Count 4.04 10^3/uL (1.2-6.7); Basophils % 0.9 %; Eosinophils % 2.3 %; HCT 40.4 % (40.0-50.0); HGB 13.6 g/dL (13.5-17.5); Immature Grans % 0.8 %; MCH 31.6 pg (27.0-33.0); MCHC 33.7 % (32.0-36.0); MCV 94 fL (80-95); MPV 10.2 fL (8.0-11.0); Platelet Count 200 10^3/uL (130-400); RDW-SD 44.3 fL; WBC 6.62 10^3/uL (4.4-10.8)
--- NOTE | 2024-08-31 16:30 | DI.CT_ITS ---
Exam(s) CT CHEST/ABD/PEL W EXAM: CT CHEST/ABD/PEL W s CLINICAL HISTORY: trauma. TECHNIQUE: Imaging Protocol: Axial computed tomography images with coronal and sagittal reformatted images were created and reviewed CONTRAST MATERIAL: Intravenous: Omnipaque 350 Contrast volume:100 ml Oral: None COMPARISON: CT CT THORACIC LUMBAR SPINE WO from 08/31/2024 FINDINGS: CHEST: LUNGS: No evidence of lung contusion or pleural effusion or pneumothorax. There are few small benign calcified granulomas in both lung hickman incidentally noted. No ominous pulmonary nodules.. MEDIASTINUM: No evidence of sternal fracture or mediastinal hematoma. No incidental hilar nor mediastinal adenopathy CARDIAC: Heart size is upper normal-minimally prominent. There is no pericardial effusion. The ascending thoracic aorta is dilated with diameter 4 cm. No dissection. The aortic arch and descending thoracic aorta are also mildly enlarged. No dissection. OSSEOUS: Are subtle nondisplaced fracture of the right 11th and 12th ribs.. There are also, acute displaced fractures of all of the right transverse process is in the lumbosacral spinal column. There is asymmetry-enlargement of the adjacent right psoas muscle consistent with relatively isodense psoas hematoma on the right side. Left transverse process is are intact. There are no compression or wedge fractures in the vertebral bodies. No facet joint malalignment. No sacral fractures. No pelvic nor hip fractures. No diastasis of the SI joints and symphysis pubis. ABDOMEN: There is no ascites. LIVER: Intact. No lacerations. No incidental lesions. No dilated intrahepatic ducts. GALLBLADDER/BILIARY: Contracted. CBD is not dilated. PANCREAS: No evidence of pancreatic mass nor dilatation of the pancreatic duct. SPLEEN: Intact. No lacerations. No incidental lesions. Splenic and portal veins are patent. ADRENALS: There are no significant adrenal masses. KIDNEYS: Left kidney exhibits no acute findings. Contains few small cortical cysts and the intrarenal calculi which are nonobstructive.. However, in the superior pole the opposite-right kidney there is cortical scarring noted and some regularity which is difficult to determine as acute trauma sequelae versus possible postprocedure sequelae. ABDOMINAL AORTA: Intact. Mild-moderate atherosclerotic disease. No dissection. No significant contusion. The aortic bifurcation and iliac arteries are also intact as are the common femoral arteries. LYMPH NODES: There is no retroperitoneal nor paraaortic adenopathy. ABDOMINAL WALL: No significant abdominal wall hematomas. Incidentally noted is of fat only containing right inguinal hernia. GI: No evidence of bowel wall nor mesenteric hematoma. No ascites. PELVIS: LYMPH NODES: No evidence of intrapelvic hematoma. No intrapelvic adenopathy. GI: No evidence of appendicitis.Sigmoid diverticuli without evidence of acute diverticulitis. URINARY BLADDER: Not distended. No obvious masses. REPRODUCTIVE: Enlarged prostate gland which measures 6.5 cm wide. Contains some calcification OSSEOUS: No hip nor pelvic fractures. All the right transverse process is exhibit displaced fractures IMPRESSION: 1. There are displaced fractures off of all of the right transverse processes of the lumbosacral spine and the adjacent right psoas muscle exhibits some hematoma which is relatively isodense to muscle but is larger than the [id number]. There is no vertebral compression fractures nor listhesis. No facet malalignment. There also nondisplaced fractures of the right 11th and 12th ribs. 2. No lung contusion or pneumothorax nor pleural effusion. 3. There is focal abnormality in the superior pole of the right kidney which may related to trauma but there also appears to have been possible prior partial nephrectomy on this side and these findings may be sequela of that. There are no acute findings in the opposite-left kidney. Small cysts in both kidneys as well as calculi in both kidneys are noted. There is no hydronephrosis. Opposite-left kidney appears unremarkable. 4. Enlarged prostate gland. Report called to ER physician 08/31/2024 at 5:26 p.m. RADIATION DOSE DELIVERED: 693.09mGy.cm Total DLP DATA REPOSITORY: All CT scans at this facility are submitted to the National Radiology Data Registry (NRDR) Dose Index Registry (DIR) with the [employer] (ACR). RADIATION OPTIMIZATION: All CT scans at this facility use at least one of these dose optimization techniques: automated exposure control; mA and/or kV adjustment per patient size (includes targeted exams where dose is matched to clinical indication); or iterative reconstruction.
[2024-08-31] MEDS: Normal Saline - Diluent 50 ML VIAL IJ (16:35)
[2024-08-31] MEDS: Omnipaque 350 MG/ML 100 ML BTL IJ (16:36)
[2024-08-31 16:39] LABS: ALT 30 U/L (16-63); AST 35 U/L (15-37); Albumin 3.7 g/dL (3.4-5.0); Alkaline Phosphatase 66 U/L (46-116); Anion Gap 5.3 mmol/L (3-11); BUN 25 mg/dL (7-18); Bilirubin, Total 0.6 mg/dL (0.2-1.0); CO2 31.7 mmol/L (21.0-32.0); CREATININE 1.4 mg/dL (0.70-1.30); Calcium 9.2 mg/dL (8.5-10.1); Chloride 104 mmol/L (98-107); Glucose 109 mg/dL (74-106); Magnesium 1.9 mg/dL (1.8-2.4); Potassium 4.4 mmol/L (3.5-5.1); Prothrombin Time 9.9 sec (9.1-11.1); Sodium 141 mmol/L (136-145); Total Protein 6.9 g/dL (6.4-8.2)
[2024-08-31 16:44] LABS: Troponin I 14 ng/L (<or=76)
[2024-08-31] MEDS: ACETAMINOPHEN 1,000 MG/100 ML BAG 400 MG IVPB (16:54)
[2024-08-31] MEDS: Diph,Pertuss(Acell),Tet Vac/Pf 0.5 ML SYR IM (16:55)
[2024-08-31 17:34] LABS: Troponin I 15 ng/L (<or=76)
[2024-08-31] MEDS: HYDROmorphone 2 MG/ML SYR 0.5 MG IVP (17:39)
[2024-08-31 17:50] LABS: Bacteria Negative HPF (Negative); Bilirubin Negative (Negative); Blood Trace-intact (Negative); C & S Indicated? No; Casts Negative LPF (Negative); Clarity Clear (Clear); Crystals Negative HPF (Negative); Epithelial Cells Negative HPF (Negative); Glucose Negative (Negative); Ketones Negative (Negative); Leukocyte Esterase Negative (Negative); Mucus Negative (Negative); Nitrite Negative (Negative); Other Cells Negative (Negative); RBC 0-2 HPF (0-2); Urobilinogen 0.2 mg/dL (Up to 0.2); WBC Negative HPF (0-5); pH 6.5 (5-8)
== END 2024-08-31 18:00 | disposition short-term general hospital (02) ==
LOC: ER 18:05
PROVIDERS: Emergency Provider Emergency Medicine; PCP Family Medicine
DX: S32.018A Other fracture of first lumbar vertebra, initial encounter for closed fracture (principal); S32.028A Other fracture of second lumbar vertebra, initial encounter for closed fracture; S32.038A Other fracture of third lumbar vertebra, initial encounter for closed fracture; S32.048A Other fracture of fourth lumbar vertebra, initial encounter for closed fracture; S32.058A Other fracture of fifth lumbar vertebra, initial encounter for closed fracture; S22.31XA Fracture of one rib, right side, initial encounter for closed fracture; I10 Essential (primary) hypertension; Z23 Encounter for immunization; W11.XXXA Fall on and from ladder, initial encounter
CPT/HCPCS: 96375; 99291; 90471; 74177; 76705; 76857; 80053; 90715; 93005; 93308; 96365; 70450; 71260; 72125; 72128; 72131; 81003; 81015; 83735; 84484; 85025; 85610; 93010; J0131; J1171; J3490

== ENCOUNTER 2024-12-10 16:12 | Outpatient (REF) | payer MEDICARE, BC, SELFPAY ==
[2024-12-10 15:04] LABS: Abs Immature Grans 0.04 10^3/uL (0.0-0.06); HCT 44.3 % (40.0-50.0); HGB 14.9 g/dL (13.5-17.5); Immature Grans % 0.6 %; MCH 31.3 pg (27.0-33.0); MCHC 33.6 % (32.0-36.0); MCV 93 fL (80-95); MPV 10.4 fL (8.0-11.0); Platelet Count 206 10^3/uL (130-400); RBC 4.76 10^6/uL (4.36-5.78); RDW 12.9 % (11.8-14.1); RDW-SD 44.0 fL; WBC 7.04 10^3/uL (4.4-10.8)
[2024-12-10 17:11] LABS: Folate 16.0 ng/mL (8.6-20.0); TSH 2.30 uIU/mL (0.36-3.74); Vitamin B12 436 pg/mL (193-986)
== END 2024-12-10 16:13 | disposition home or self-care (01) ==
LOC: NCHCN 16:12
PROVIDERS: PCP Family Medicine; Visit Provider Student in an Organized Health Care Education/Training Program
DX: E03.9 Hypothyroidism, unspecified (principal)
CPT/HCPCS: 82607; 82746; 84439; 84443; 85025